=== PATIENT | male | born 2000 | race Caucasian/White ===

== ENCOUNTER 2019-03-22 15:49 | Emergency (ER) | payer OTHER ==
[2019-03-22 15:55] VITALS: RESP 18; TEMP 97.7
[2019-03-22] MEDS ORDERED: SODIUM CHLORIDE 0.9% 1,000 ML IV STA (16:25)
[2019-03-22 16:53] LABS: Basophils % (A) 0 %; Eosinophils % (A) 0 %; HCT 42.5 % (39.0-53.0); HGB 13.5 gm/dL (13.0-17.5); Lymphocytes # (A) 1.3 k/uL (1.0-4.8); Lymphocytes % (A) 10 %; MCH 21.5 pg (25.0-35.0); MCHC 31.8 g/dL (31.0-37.0); MCV 67.6 fL (80.0-100.0); Microcytosis Marked; Monocytes # (A) 0.6 k/uL (0-1.0); Monocytes % (A) 4 %; Neutrophils # (A) 10.8 k/uL (1.3-7.7); Neutrophils % (A) 84 %; Platelet Count 273 k/uL (150-450); RBC 6.28 m/uL (4.30-5.90); RDW 14.2 % (11.5-15.5); WBC 12.9 k/uL (4.0-11.0)
--- NOTE | 2019-03-22 16:59 | CT ---
EXAMINATION TYPE: CT brain jessica wo con DATE OF EXAM: 03/22/2019 COMPARISON: None HISTORY: Syncope, seizure and fall. Neck pain. Headache. CT DLP: 1315.4 mGycm Automated exposure control for dose reduction was used. Ventricles have normal size. There is no mass effect nor midline shift. There is no sign of intracran ial hemorrhage. Calvarium is intact. There is some straightening of the cervical spine. Disc spaces are normal. Posterior elements are int act. Skull base is intact. There is no evidence of a fracture. IMPRESSION: Negative CT scan cervical spine. Negative CT scan of the brain.
--- NOTE | 2019-03-22 17:00 | XR ---
EXAMINATION TYPE: XR chest 2V DATE OF EXAM: 03/22/2019 COMPARISON: NONE HISTORY: Syncope TECHNIQUE: 2 views FINDINGS: Heart and mediastinum are normal. Lungs are clear. Diaphragm is normal. Bony thorax appears normal. IMPRESSION: Normal chest.
[2019-03-22 17:10] LABS: ALT 14 U/L (4-49); AST 27 U/L (17-59); African American GFR (CKD) >90 (>60 ml/min/1.73 sqM); Albumin 5.2 g/dL (3.5-5.0); Alkaline Phosphatase 90 U/L (38-126); Anion Gap 11 mmol/L; Blood Urea Nitrogen 14 mg/dL (9-20); Carbon Dioxide 25 mmol/L (22-30); Chloride 103 mmol/L (98-107); Creatine Kinase 68 U/L (55-170); Glucose 93 mg/dL (74-99); Non-African American GFR(CKD) >90 (>60 ml/min/1.73 sqM); Sodium 139 mmol/L (137-145); Total Bilirubin 2.4 mg/dL (0.2-1.3)
[2019-03-22 17:14] LABS: D-Dimer <0.17 mg/L FEU (<0.60); Prothrombin Time 10.5 sec (9.0-12.0)
--- NOTE | 2019-03-22 17:17 | ED ---
General Adult HPI - General Chief complaint: Syncope Stated complaint: syncope/poss seizure Time Seen by Provider: 03/22/19 15:50 Source: EMS Mode of arrival: EMS Limitations: no limitations - History of Present Illness Initial comments: The patient is a 18-year-old male past medical history of thalassemia who presents to the emergency department with reported syncopal versus seizure like activity at home. This afternoon the patient was playing around with his dog when the dog bumped into his jaw and caused him suffer from a laceration. The patient did stand up and was rinsing out his mouth over the sink when he states that he felt lightheaded with chest pain and had shortness of breath. Mother was near the patient however she states she turned around and the patient was on the ground. She is unsure if he hit his head. The patient did have some shaking to his whole body. It only lasted about 15 seconds. She is unsure if it is considered seizure-like activity however when the patient became arousable he was confused for approximately an hour. Patient states he does not remember the events after standing over the sink. He doesn't remember please arriving to the house which was almost an hour later. Mother states that during this confusion. He was reporting chest pain with difficulty taking a full breath in. They deny that there is a significant amount of bleeding from the cut. Patient is denying a headache or visual changes. No neck pain or stiffness. No recent infections. Continues to report shortness of breath. Denies any abdominal pain or changes in his bowel or bladder habits. There is no tongue biting and the patient did not have any urinary or stool incontinence. History of one similar episode in the past. The patient popped blister on his arm and ended up passing out. Mother states that the details surrounding the incident are fairly familiar. The patient was not immediately evaluated. They deny that the patient has a history of cardiac disease. No family history of sudden cardiac . 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 The patient does not take any prescribed medications. No abuse of any illicit substances. There are no alleviating, precipitating or modifying factors - Related Data Home Medications Medication Instructions Recorded Confirmed Simethicone [Gas-X] 125 mg PO Q4H PRN 06/22/18 06/22/18 Previous Rx's Medication Instructions Recorded EPINEPHrine (Auto Inject) [Epipen] 0.3 mg IM ONCE PRN #1 syringe 02/18/15 Allergies Allergy/AdvReac Type Severity Reaction Status Date / Time No Known Allergies Allergy Verified 06/22/18 14:51 Review of Systems ROS Statement: Those systems with pertinent positive or pertinent negative responses have been documented in the HPI. ROS Other: All systems not noted in ROS Statement are negative. Past Medical History Past Medical History: No Reported History Additional Past Medical History / Comment(s): thalassemia History of Any Multi-Drug Resistant Organisms: None Reported Past Surgical History: Adenoidectomy, Appendectomy, Tonsillectomy Past Psychological History: No Psychological Hx Reported Smoking Status: Never smoker Past Alcohol Use History: Occasional Past Drug Use History: None Reported General Exam Limitations: no limitations General appearance: alert, in no apparent distress Head exam: Present: atraumatic, normocephalic, normal inspection Eye exam: Present: normal appearance, PERRL, EOMI. Absent: scleral icterus, conjunctival injection, periorbital swelling ENT exam: Present: normal exam, mucous membranes moist Neck exam: Present: normal inspection. Absent: tenderness, meningismus, lymphadenopathy Respiratory exam: Present: normal lung sounds bilaterally. Absent: respiratory distress, wheezes, rales, rhonchi, stridor Cardiovascular Exam: Present: regular rate, normal rhythm, normal heart sounds. Absent: systolic murmur, diastolic murmur, rubs, gallop, clicks GI/Abdominal exam: Present: soft, normal bowel sounds. Absent: distended, tenderness, guarding, rebound, rigid Extremities exam: Present: normal inspection, full ROM, normal capillary refill. Absent: tenderness, pedal edema, joint swelling, calf tenderness Back exam: Present: normal inspection Neurological exam: Present: alert, oriented X3, CN II-XII intact Psychiatric exam: Present: normal affect, normal mood Skin exam: Present: warm, dry, intact, normal color. Absent: rash Course Vital Signs 03/22/19 03/22/19 03/22/19 15:53 17:03 17:57 Temperature 97.7 F Pulse Rate 112 H 89 Respiratory 18 18 Rate Blood Pressure 123/70 110/60 Blood Pressure 106/63 [Right Arm Sitting] Blood Pressure 103/64 [Right Arm Standing] Blood Pressure 101/67 [Right Arm Supine] O2 Sat by Pulse 100 98 Oximetry EKG Findings - EKG Comments: EKG Findings:: EKG demonstrates normal sinus rhythm with ventricular rate of 94. LA interval 122. QRS 90. QTC of 442. No acute ST segment elevations or depressions concerning for ischemic change. No signs of Njfeq-Exzqywkgm-Ssrda or Brugada syndrome. No signs of arrythmogenic right ventricular dysplasia Medical Decision Making - Medical Decision Making Upon arrival the patient was placed into room 5. A thorough history and physical exam is performed. Peripheral IV was established by EMS. Patient was placed on continuous pulse ox and cardiac monitoring. Sats were conducted which were negative. He was given a liter bolus of normal saline. Laboratory studies were conducted. The patient was fitted for a chest x-ray. Because of this possible new-onset seizure like activity with possible head injury I did recommend a CT of the patient's brain. Laboratory studies demonstrated a white blood count of 12.9. D-dimer is negative. CMP is remarkable for a total bili of 2.4. Urinalysis as well as urine drug screen is negative. CT brain and C- spine demonstrates no acute intracranial findings. Chest x-ray demonstrates thoracic findings. The patient was given 4 mg of Zofran as he is reporting nausea. Even reevaluated and feels improved. I did discuss diagnosis, differential and treatment options. I did offer hospital observation for the patient's syncopal episode versus new onset seizure-like activity however the patient feels improved at this time he wants to go home. Recommend patient follow up with his primary care physician. He may need additional testing to include an MRI, EEG, Holter monitoring and echo. Return to the emergency room for any new or worsening symptoms. Patient was in agreement treatment plan and was discharged home ambulatory in stable condition - Lab Data Result diagrams: 03/22/19 15:56 03/22/19 15:56 Lab Results 03/22/19 03/22/19 03/22/19 Range/Units 15:56 15:56 15:56 WBC 12.9 H (4.0-11.0) k/uL RBC 6.28 H (4.30-5.90) m/uL Hgb 13.5 (13.0-17.5) gm/dL Hct 42.5 (39.0-53.0) % MCV 67.6 L (80.0-100.0) fL MCH 21.5 L (25.0-35.0) pg MCHC 31.8 (31.0-37.0) g/dL RDW 14.2 (11.5-15.5) % Plt Count 273 (150-450) k/uL Neutrophils % 84 % Lymphocytes % 10 % Monocytes % 4 % Eosinophils % 0 % Basophils % 0 % Neutrophils # 10.8 H (1.3-7.7) k/uL Lymphocytes # 1.3 (1.0-4.8) k/uL Monocytes # 0.6 (0-1.0) k/uL Eosinophils # 0.0 (0-0.7) k/uL Basophils # 0.0 (0-0.2) k/uL Microcytosis Marked PT 10.5 (9.0-12.0) sec INR 1.0 (<1.2) APTT 25.0 (22.0-30.0) sec D-Dimer <0.17 (<0.60) mg/L FEU Sodium 139 (137-145) mmol/L Potassium 4.0 (3.5-5.1) mmol/L Chloride 103 (98-107) mmol/L Carbon Dioxide 25 (22-30) mmol/L Anion Gap 11 mmol/L BUN 14 (9-20) mg/dL Creatinine 0.91 (0.66-1.25) mg/dL Est GFR (CKD-EPI)AfAm >90 (>60 ml/min/1.73 sqM) Est GFR (CKD-EPI)NonAf >90 (>60 ml/min/1.73 sqM) Glucose 93 (74-99) mg/dL Plasma Lactic Acid Kiet (0.7-2.0) mmol/L Calcium 10.0 (8.4-10.2) mg/dL Total Bilirubin 2.4 H (0.2-1.3) mg/dL AST 27 (17-59) U/L ALT 14 (4-49) U/L Alkaline Phosphatase 90 (38-126) U/L Creatine Kinase 68 (55-170) U/L Troponin I (0.000-0.034) ng/mL Total Protein 8.0 (6.3-8.2) g/dL Albumin 5.2 H (3.5-5.0) g/dL Urine Color Urine Appearance (Clear) Urine pH (5.0-8.0) Ur Specific [place] (1.001-1.035) Urine Protein (Negative) Urine Glucose (UA) (Negative) Urine Ketones (Negative) Urine Blood (Negative) Urine Nitrite (Negative) Urine Bilirubin (Negative) Urine Urobilinogen (<2.0) mg/dL Ur Leukocyte Esterase (Negative) Urine Opiates Screen (NotDetected) Ur Oxycodone Screen (NotDetected) Urine Methadone Screen (NotDetected) Ur Propoxyphene Screen (NotDetected) Ur Barbiturates Screen (NotDetected) U Tricyclic Antidepress (NotDetected) Ur Phencyclidine Scrn (NotDetected) Ur Amphetamines Screen (NotDetected) U Methamphetamines Scrn (NotDetected) U Benzodiazepines Scrn (NotDetected) Urine Cocaine Screen (NotDetected) U Marijuana (THC) Screen (NotDetected) 03/22/19 03/22/19 03/22/19 Range/Units 15:56 15:56 15:56 WBC (4.0-11.0) k/uL RBC (4.30-5.90) m/uL Hgb (13.0-17.5) gm/dL Hct (39.0-53.0) % MCV (80.0-100.0) fL MCH (25.0-35.0) pg MCHC (31.0-37.0) g/dL RDW (11.5-15.5) % Plt Count (150-450) k/uL Neutrophils % % Lymphocytes % % Monocytes % % Eosinophils % % Basophils % % Neutrophils # (1.3-7.7) k/uL Lymphocytes # (1.0-4.8) k/uL Monocytes # (0-1.0) k/uL Eosinophils # (0-0.7) k/uL Basophils # (0-0.2) k/uL Microcytosis PT (9.0-12.0) sec INR (<1.2) APTT (22.0-30.0) sec D-Dimer (<0.60) mg/L FEU Sodium (137-145) mmol/L Potassium (3.5-5.1) mmol/L Chloride (98-107) mmol/L Carbon Dioxide (22-30) mmol/L Anion Gap mmol/L BUN (9-20) mg/dL Creatinine (0.66-1.25) mg/dL Est GFR (CKD-EPI)AfAm (>60 ml/min/1.73 sqM) Est GFR (CKD-EPI)NonAf (>60 ml/min/1.73 sqM) Glucose (74-99) mg/dL Plasma Lactic Acid Kiet 1.3 (0.7-2.0) mmol/L Calcium (8.4-10.2) mg/dL Total Bilirubin (0.2-1.3) mg/dL AST (17-59) U/L ALT (4-49) U/L Alkaline Phosphatase (38-126) U/L Creatine Kinase (55-170) U/L Troponin I <0.012 (0.000-0.034) ng/mL Total Protein (6.3-8.2) g/dL Albumin (3.5-5.0) g/dL Urine Color Light Yellow Urine Appearance Clear (Clear) Urine pH 8.0 (5.0-8.0) Ur Specific [place] 1.003 (1.001-1.035) Urine Protein Negative (Negative) Urine Glucose (UA) Negative (Negative) Urine Ketones Negative (Negative) Urine Blood Negative (Negative) Urine Nitrite Negative (Negative) Urine Bilirubin Negative (Negative) Urine Urobilinogen <2.0 (<2.0) mg/dL Ur Leukocyte Esterase Negative (Negative) Urine Opiates Screen Not Detected (NotDetected) Ur Oxycodone Screen Not Detected (NotDetected) Urine Methadone Screen Not Detected (NotDetected) Ur Propoxyphene Screen Not Detected (NotDetected) Ur Barbiturates Screen Not Detected (NotDetected) U Tricyclic Antidepress Not Detected (NotDetected) Ur Phencyclidine Scrn Not Detected (NotDetected) Ur Amphetamines Screen Not Detected (NotDetected) U Methamphetamines Scrn Not Detected (NotDetected) U Benzodiazepines Scrn Not Detected (NotDetected) Urine Cocaine Screen Not Detected (NotDetected) U Marijuana (THC) Screen Not Detected (NotDetected) Disposition Clinical Impression: Syncope and collapse Disposition: HOME SELF-CARE Condition: Stable Instructions (If sedation given, give patient instructions): Syncope (ED) Additional Instructions: Please follow up with the primary care doctor in 2-4 days. I do recommend that you have Holter monitoring and echo for possible passing out episode. Also recommended you have an MRI and EEG for possible seizure like activity. Return to the emergency room for any new worsening symptoms Is patient prescribed a controlled substance at d/c from ED?: No Referrals: Spencer Renteria MD [Primary Care Provider] - 1-2 days Time of Disposition: 17:48
[2019-03-22 17:29] LABS: Appearance,Urine Clear (Clear); Bilirubin,Urine Negative (Negative); Blood,Urine Negative (Negative); Color,Urine Light Yellow; Glucose,Urine (UA) Negative (Negative); Ketones,Urine Negative (Negative); Leukocyte Esterase,Urine Negative (Negative); Nitrite,Urine Negative (Negative); Protein,Urine Negative (Negative); Specific Gravity,Urine 1.003 (1.001-1.035); Urobilinogen,Urine <2.0 mg/dL (<2.0)
[2019-03-22 17:42] LABS: Amphetamine Screen,Urine Not Detected (NotDetected); Barbiturate Screen,Urine Not Detected (NotDetected); Benzodiazepines Screen,Urine Not Detected (NotDetected); Cocaine Screen,Urine Not Detected (NotDetected); Methadone Screen, Urine Not Detected (NotDetected); Opiate Screen,Urine Not Detected (NotDetected); Oxycodone Screen, Urine Not Detected (NotDetected); Phencyclidine Screen,Urine Not Detected (NotDetected); Tricyclic Antidepressant,Urine Not Detected (NotDetected); Urn Cannabinoid Scrn Not Detected (NotDetected)
[2019-03-22] MEDS ORDERED: ONDANSETRON 4 MG ODT STARTER PACK 2 TAB BTL PO STA (17:47)
[2019-03-22] MEDS ORDERED: ONDANSETRON 4 MG/2 ML VIAL IVP STA (17:47)
[2019-03-22 18:01] VITALS: BP 110/60; PULSE 89
== END 2019-03-22 17:57 | disposition home or self-care (01) ==
LOC: EC 15:49
DX: R55 Syncope and collapse (principal); R07.9 Chest pain, unspecified; R06.02 Shortness of breath; R11.0 Nausea
CPT/HCPCS: 99285; 96374; 96361; 36415; 93005; 85379; 80053; 82550; 83605; 84484; 85025; 85610; 85730; 81003; 80306; 71046; 72125; 70450; J2405; S0119

== ENCOUNTER 2023-02-24 20:38 | Emergency (ER) | payer OTHER ==
[2023-02-24 21:14] VITALS: RESP 18; TEMP 98.2
--- NOTE | 2023-02-24 21:54 | ED ---
General Adult HPI - General Chief complaint: ENT Stated complaint: Syncope Time Seen by Provider: 02/24/23 21:20 Source: patient, EMS Mode of arrival: EMS Limitations: no limitations - History of Present Illness Initial comments: Dictation was produced using [employer] dictation software. please excuse any grammatical, word or spelling errors. 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 He states that he gets nosebleeds often. Today he had a more severe nosebleed that he is usually used 2. Around that time he had an episode of syncope. Mother witnessed the event did appear to be shaking a little bit. There was some concern that he was mildly postictal. He was confused for several minutes after the alleged shaking incident. Patient has a history of seizures. He has been suffering from cold and cough symptoms for the last several days. Patient otherwise has not been feeling very well. The ROS documented in this emergency department record has been reviewed and confirmed by me. Those systems with pertinent positive or negative responses have been documented in the HPI. All other systems are other negative and/or noncontributory. - Related Data Home Medications Medication Instructions Recorded Confirmed Simethicone [Gas-X] 125 mg PO Q4H PRN 06/22/18 06/22/18 Previous Rx's Medication Instructions Recorded EPINEPHrine (Auto Inject) [Epipen] 0.3 mg IM ONCE PRN #1 syringe 02/18/15 Allergies Allergy/AdvReac Type Severity Reaction Status Date / Time No Known Allergies Allergy Verified 02/24/23 20:50 Review of Systems ROS Statement: Those systems with pertinent positive or pertinent negative responses have been documented in the HPI. ROS Other: All systems not noted in ROS Statement are negative. Past Medical History Past Medical History: No Reported History Additional Past Medical History / Comment(s): thalassemia History of Any Multi-Drug Resistant Organisms: None Reported Past Surgical History: Adenoidectomy, Appendectomy, Tonsillectomy Past Psychological History: No Psychological Hx Reported Past Alcohol Use History: Occasional Past Drug Use History: None Reported General Exam - General Exam Comments Initial Comments: PHYSICAL EXAM: General Impression: Alert and oriented x3, not in acute distress HEENT: Normocephalic atraumatic, extra-ocular movements intact, pupils equal and reactive to light bilaterally, mucous membranes moist. Cardiovascular: Heart regular rate and rhythm Chest: Able to complete full sentences, no retractions, no tachypnea Abdomen: abdomen soft, non-tender, non-distended, no organomegaly Musculoskeletal: Pulses present and equal in all extremities, no peripheral edema Motor: no focal deficits noted Neurological: CN II-XII grossly intact, no focal motor or sensory deficits noted Skin: Intact with no visualized rashes Psych: Normal affect and mood Limitations: no limitations Course Vital Signs 02/24/23 02/24/23 20:51 23:50 Temperature 98.2 F Pulse Rate 68 60 Respiratory 18 18 Rate Blood Pressure 104/68 99/54 O2 Sat by Pulse 100 99 Oximetry EKG Findings - EKG Comments: EKG Findings:: My EKG interpretation: Ventricular rate 70, sinus rhythm,. 154, QRS 90, QTC 34. No CA prolongation, no QTC prolongation, no ST or T-wave changes noted. Overall, this EKG is unremarkable Medical Decision Making - Medical Decision Making Was pt. sent in by a medical professional or institution (, PA, ELECTRICAL PLUMBING SUPERVISOR, urgent care, hospital, or retirement...) When possible be specific @ -No Did you speak to anyone other than the patient for history (EMS, parent, family, police, friend...)? What history was obtained from this source @ -Parents provide history as described above Did you review nursing and triage notes (agree or disagree)? Why? @ -I reviewed and agree with nursing and triage notes Were old charts reviewed (outside hosp., previous admission, EMS record, old EKG, old radiological studies, urgent care reports/EKG's, retirement records)? Report findings @ -No old charts were reviewed Differential Diagnosis (chest pain, altered mental status, abdominal pain women, abdominal pain men, vaginal bleeding, musculoskeletal, weakness, fever, dyspn ea, syncope, headache, dizziness, GI bleed, back pain, seizure, CVA, palpatations, mental health)? @ -FDifferential Syncope: Valvular disease, hypertrophic cardiomyopathy, pulmonary embolism, tamponade, tachycardia, bradycardia, NE, hypovolemia, hemorrhage, dissection, anemia, i ntracranial hemorrhage, seizure, hypoglycemia, carbon monoxide poisoning, this is not meant to be an all-inclusive list. EKG interpreted by me (3pts min.). @ -See above X-rays interpreted by me (1pt min.). @ -X-rays nonacute. CT interpreted by me (1pt min.). @ -Brain is nonacute U/S interpreted by me (1pt. min.). @ -None done What testing was considered but not performed or refused? (CT, X-rays, U/S, labs)? Why? @ -None What meds were considered but not given or refused? Why? @ -None Did you discuss the management of the patient with other professionals (professionals i.e. , PA, ELECTRICAL PLUMBING SUPERVISOR, lab, RT, psych nurse, social insurance analyst, signs and displays sales representative, teacher, community liaison officer, case picker)? Give summary @ -No Was smoking cessation discussed for >3mins.? @ -No Was critical care preformed (if so, how long)? @ -No Were there social determinants of health that impacted care today? How? (Homelessness, low income, unemployed, alcoholism, drug addiction, transportation, low edu. Level, literacy, decrease access to med. care, nursing home, rehab)? @ -No Was there de-escalation of care discussed even if they declined (Discuss DNR or withdrawal of care, Hospice)? DNR status @ -No What co-morbidities impacted this encounter? (DM, HTN, Smoking, COPD, CAD, Cancer, CVA, ARF, Chemo, Hep., AIDS, mental health diagnosis, sleep apnea, morbid obesity)? @ -None Was patient admitted / discharged? Hospital course, mention meds given and route, prescriptions, significant lab abnormalities, going to OR and other pertinent info. @ --22 year-old male presents to the emergency department after syncope versus seizure episode. Unclear patient had a postictal state and also has complaint of epistaxis. EKG is unremarkable. Vital signs stable. Patient will. Bedside. No active epistaxis at this time. Labs are negative.: CBC is a cceptable. Metabolic panel is unremarkable. Current virus positive. Patient observed in emergency department stable medical condition. He value at bedside at 12:20 AM will be discharged advised follow-up with primary care doctor. Undiagnosed new problem with uncertain prognosis? @ -No Drug Therapy requiring intensive monitoring for toxicity (Heparin, Nitro, Insulin, Cardizem)? @ -No Were any procedures done? @ -No Diagnosis/symptom? Acute, or Chronic, or Acute on Chronic? Uncomplicated (without systemic symptoms) or Complicated (systemic symptoms)? @ -Syncope secondary to COVID-19 virus, epistaxis Side effects of treatment? @ -No Exacerbation, Progression, or Severe Exacerbation? @ -No Poses a threat to life or bodily function? How? (Chest pain, USA, NE, pneumonia, PE, COPD, DKA, ARF, appy, cholecystitis, CVA, Diverticulitis, Homicidal, Suicidal, threat to staff... and all critical care pts) @ -No - Lab Data Result diagrams: 02/24/23 22:29 02/24/23 21:46 Lab Results 02/24/23 02/24/23 02/24/23 Range/Units 21:46 21:46 21:46 WBC (3.8-10.6) k/uL RBC (4.30-5.90) m/uL Hgb (13.0-17.5) gm/dL Hct (39.0-53.0) % MCV (80.0-100.0) fL MCH (25.0-35.0) pg MCHC (31.0-37.0) g/dL RDW (11.5-15.5) % Plt Count (150-450) k/uL MPV Neutrophils % % Lymphocytes % % Monocytes % % Eosinophils % % Basophils % % Neutrophils # (1.3-7.7) k/uL Lymphocytes # (1.0-4.8) k/uL Monocytes # (0-1.0) k/uL Eosinophils # (0-0.7) k/uL Basophils # (0-0.2) k/uL Microcytosis PT 10.6 (10.0-12.5) sec INR 1.0 (<1.2) APTT 18.6 L (22.0-30.0) sec Sodium 138 (137-145) mmol/L Potassium 4.0 (3.5-5.1) mmol/L Chloride 103 (98-107) mmol/L Carbon Dioxide 25 (22-30) mmol/L Anion Gap 10 mmol/L BUN 18 (9-20) mg/dL Creatinine 0.75 (0.66-1.25) mg/dL Est GFR (CKD-EPI)AfAm >90 (>60 ml/min/1.73 sqM) Est GFR (CKD-EPI)NonAf >90 (>60 ml/min/1.73 sqM) Glucose 111 H (74-99) mg/dL Calcium 8.6 (8.4-10.2) mg/dL Magnesium 2.0 (1.6-2.3) mg/dL Influenza Type A (PCR) (Not Detectd) Influenza Type B (PCR) (Not Detectd) RSV (PCR) (Not Detectd) SARS-CoV-2 (PCR) (Not Detectd) Blood Type O Positive Blood Type Confirm Blood Type Recheck No Previous Record Bld Type Recheck Status CABO Indicated Antibody Screen NEGATIVE Spec Expiration Date 02/27/2023 - 234502/24/23 02/24/23 02/24/23 Range/Units 22:29 22:29 22:34 WBC 6.3 (3.8-10.6) k/uL RBC 5.07 (4.30-5.90) m/uL Hgb 11.4 L (13.0-17.5) gm/dL Hct 34.4 L (39.0-53.0) % MCV 67.9 L (80.0-100.0) fL MCH 22.5 L (25.0-35.0) pg MCHC 33.1 (31.0-37.0) g/dL RDW 15.4 (11.5-15.5) % Plt Count 186 (150-450) k/uL MPV 7.1 Neutrophils % 70 % Lymphocytes % 22 % Monocytes % 6 % Eosinophils % 0 % Basophils % 1 % Neutrophils # 4.4 (1.3-7.7) k/uL Lymphocytes # 1.4 (1.0-4.8) k/uL Monocytes # 0.4 (0-1.0) k/uL Eosinophils # 0.0 (0-0.7) k/uL Basophils # 0.0 (0-0.2) k/uL Microcytosis Marked PT (10.0-12.5) sec INR (<1.2) APTT (22.0-30.0) sec Sodium (137-145) mmol/L Potassium (3.5-5.1) mmol/L Chloride (98-107) mmol/L Carbon Dioxide (22-30) mmol/L Anion Gap mmol/L BUN (9-20) mg/dL Creatinine (0.66-1.25) mg/dL Est GFR (CKD-EPI)AfAm (>60 ml/min/1.73 sqM) Est GFR (CKD-EPI)NonAf (>60 ml/min/1.73 sqM) Glucose (74-99) mg/dL Calcium (8.4-10.2) mg/dL Magnesium (1.6-2.3) mg/dL Influenza Type A (PCR) Not Detected (Not Detectd) Influenza Type B (PCR) Not Detected (Not Detectd) RSV (PCR) Not Detected (Not Detectd) SARS-CoV-2 (PCR) Detected A (Not Detectd) Blood Type Blood Type Confirm O Positive Blood Type Recheck Bld Type Recheck Status Antibody Screen Spec Expiration Date Disposition Clinical Impression: Syncope, Coronavirus infection Disposition: HOME SELF-CARE Condition: Fair Instructions (If sedation given, give patient instructions): Nosebleed (ED), Coronavirus Disease 2019 (COVID-19) Is patient prescribed a controlled substance at d/c from ED?: No Referrals: Spencer Renteria MD [Primary Care Provider] - 1-2 days Time of Disposition: 00:22
[2023-02-24 22:18] LABS: Prothrombin Time 10.6 sec (10.0-12.5)
[2023-02-24 22:33] LABS: African American GFR (CKD) >90 (>60 ml/min/1.73 sqM); Anion Gap 10 mmol/L; Blood Urea Nitrogen 18 mg/dL (9-20); Calcium 8.6 mg/dL (8.4-10.2); Carbon Dioxide 25 mmol/L (22-30); Chloride 103 mmol/L (98-107); Glucose 111 mg/dL (74-99); Non-African American GFR(CKD) >90 (>60 ml/min/1.73 sqM); Sodium 138 mmol/L (137-145)
[2023-02-24 22:38] LABS: Partial Thromboplastin Time 18.6 sec (22.0-30.0)
[2023-02-24 22:46] LABS: Basophils % (A) 1 %; Eosinophils % (A) 0 %; HCT 34.4 % (39.0-53.0); HGB 11.4 gm/dL (13.0-17.5); Lymphocytes # (A) 1.4 k/uL (1.0-4.8); Lymphocytes % (A) 22 %; MCH 22.5 pg (25.0-35.0); MCHC 33.1 g/dL (31.0-37.0); MCV 67.9 fL (80.0-100.0); Mean Platelet Volume 7.1; Microcytosis Marked; Monocytes # (A) 0.4 k/uL (0-1.0); Monocytes % (A) 6 %; Neutrophils # (A) 4.4 k/uL (1.3-7.7); Neutrophils % (A) 70 %; Platelet Count 186 k/uL (150-450); RBC 5.07 m/uL (4.30-5.90); RDW 15.4 % (11.5-15.5); WBC 6.3 k/uL (3.8-10.6)
--- NOTE | 2023-02-24 23:19 | CT ---
EXAM: CT Head Without Intravenous Contrast CLINICAL HISTORY: ITS.REASON CT Reason: cough, congestion TECHNIQUE: Axial computed tomography images of the head/brain without intravenous contrast. CTDI is 49.2 mGy and DLP is 1138.4 mGy-cm. This CT exam was performed using one or more of the following dose reduction techniques: automated exposure control, adjustment of the mA and/or kV according to patient size, and/or use of iterative reconstruction technique. COMPARISON: No relevant prior studies available. FINDINGS: Brain: Unremarkable. No hemorrhage. No significant white matter disease. No edema. Ventricles: Unremarkable. No ventriculomegaly. Bones/joints: Unremarkable. No acute fracture. Soft tissues: Unremarkable. Sinuses: Unremarkable as visualized. No acute sinusitis. Mastoid air cells: Unremarkable as visualized. No mastoid effusion. IMPRESSION: Normal head/brain CT.
--- NOTE | 2023-02-24 23:40 | XR ---
EXAMINATION TYPE: XR chest 2V DATE OF EXAM: 02/24/2023 9:58 PM CLINICAL INDICATION:Male, 22 years old with history of cough, congestion; [facility] COMPARISON: None TECHNIQUE: XR chest 2V. Frontal PA and lateral views of the chest. FINDINGS: Lines/Tubes: None. Heart/mediastinum: Cardiomediastinal silhouette is well defined. Heart size is normal. Mediastinum appears normal. Pulmonary vascularity: Not increased, Lungs/Pleura: There is no evidence of pleural effusion, focal consolidation, or pneumothorax. Musculoskeletal: No acute osseous abnormality demonstrated in the limits of the exam. Other findings: None. IMPRESSION: No acute cardiopulmonary abnormality.
[2023-02-24 23:52] VITALS: BP 99/54; PULSE 60
== END 2023-02-25 00:40 | disposition home or self-care (01) ==
LOC: EC 20:38
DX: U07.1 COVID-19 (principal)
CPT/HCPCS: 36415; 70450; 71046; 80048; 83735; 85025; 85610; 85730; 86850; 86900; 86901; 87636; 93005; 99285

== ENCOUNTER 2024-06-24 17:05 | Emergency (ER) | payer OTHER ==
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
[2024-06-24 18:39] VITALS: BP 121/76; PULSE 91; RESP 18; TEMP 98.8
== END 2024-06-24 18:39 | disposition home or self-care (01) ==
LOC: EC 17:05
DX: R07.81 Pleurodynia (principal); Y99.0 Civilian activity done for income or pay
CPT/HCPCS: 99283

== ENCOUNTER 2024-10-05 13:05 | Emergency (ER) | payer BC, OTHER ==
[2024-10-05 13:11] VITALS: RESP 18; TEMP 97.9
--- NOTE | 2024-10-05 13:52 | ED ---
General Adult HPI - General Chief complaint: Chest Pain Stated complaint: chest pain Time Seen by Provider: 10/05/24 13:10 Source: patient, RN notes reviewed, old records reviewed Mode of arrival: ambulatory Limitations: no limitations - History of Present Illness Initial comments: This is a 24-year-old male who presents to the emergency department stating that on Sunday he started having some chest pressure and felt like it was hard to take a deep breath. Patient states that it started off as a burning sensation similar to heartburn. Patient states it went away but we woke up Sunday it came back and has been ongoing ever since. Patient denies any diaphoretic episode. Patient denies any radiation of the pain. Patient Nuys any nausea or vomiting. Patient denies any abdominal pain. Patient states he had a couple episodes where he thought he might pass out but did not. Patient states he does have a history of passing out. Patient denies any recent fever chills or cough. Patient Nuys any swelling to the legs or calf tenderness. - Related Data Home Medications Medication Instructions Recorded Confirmed Simethicone [Gas-X] 125 mg PO Q4H PRN 06/22/18 06/22/18 Previous Rx's Medication Instructions Recorded EPINEPHrine (Auto Inject) [Epipen] 0.3 mg IM ONCE PRN #1 syringe 02/18/15 Allergies Allergy/AdvReac Type Severity Reaction Status Date / Time No Known Allergies Allergy Verified 10/05/24 13:11 Review of Systems ROS Statement: Those systems with pertinent positive or pertinent negative responses have been documented in the HPI. ROS Other: All systems not noted in ROS Statement are negative. Past Medical History Past Medical History: No Reported History Additional Past Medical History / Comment(s): thalassemia History of Any Multi-Drug Resistant Organisms: None Reported Past Surgical History: Adenoidectomy, Appendectomy, Tonsillectomy Past Psychological History: No Psychological Hx Reported Smoking Status: Never smoker Past Alcohol Use History: Occasional Past Drug Use History: None Reported General Exam - General Exam Comments Initial Comments: GENERAL: Patient is well-developed and well-nourished. Patient is nontoxic and well- hydrated and is in mild distress. ENT: Neck is soft and supple. No significant lymphadenopathy is noted. Oropharynx is clear. Moist mucous membranes. Neck has full range of motion without eliciting any pain. EYES: The sclera were anicteric and conjunctiva were pink and moist. Extraocular movements were intact and pupils were equal round and reactive to light. Eyelids were unremarkable. PULMONARY: Unlabored respirations. Good breath sounds bilaterally. No audible rales rhonchi or wheezing was noted. CARDIOVASCULAR: There is a regular rate and rhythm without any murmurs gallops or rubs. ABDOMEN: Soft and nontender with normal bowel sounds. No palpable organomegaly was noted. There is no palpable pulsatile mass. SKIN: Skin is clear with no lesions or rashes and otherwise unremarkable. NEUROLOGIC:Cerebellar exam grossly intact. MUSCULOSKELETAL: Normal extremities with adequate strength and full range of motion. No lower extremity swelling or edema. No calf tenderness. LYMPHATICS: No significant lymphadenopathy is noted PSYCHIATRIC: Normal psychiatric evaluation. Limitations: no limitations Course Vital Signs 10/05/24 10/05/24 13:08 13:15 Temperature 97.9 F Pulse Rate 88 Pulse Rate [ 68 [employer] Specialist ] Respiratory 18 Rate Blood Pressure 93/62 O2 Sat by Pulse 99 Oximetry Medical Decision Making - Medical Decision Making EKG is interpreted by myself and EKG shows a sinus rhythm at 79 bpm AR is 156 QRS is 85 QT interval 340 QTc is 375. Patient's EKG shows no ST segment elevation or depression. Was pt. sent in by a medical professional or institution (, PA, LABOR RELATIONS SPECIALIST, urgent care, hospital, or halfway...) When possible be specific @ -No Did you speak to anyone other than the patient for history (EMS, parent, family, police, friend...)? What history was obtained from this source @ -No Did you review nursing and triage notes (agree or disagree)? Why? @ -I reviewed and agree with nursing and triage notes Were old charts reviewed (outside hosp., previous admission, EMS record, old EKG, old radiological studies, urgent care reports/EKG's, halfway records)? Report findings @ -No old charts were reviewed Differential Diagnosis? @ -Differential Chest Pain: Stable Angina, Unstable Angina, STEMI, NSTEMI Aortic Dissection, Pneumothorax, Musculoskeletal, Esophageal Spasm GERD, Cholecystitis, Pancreatitis, Zoster, this is not meant to be an all-inclusive list. EKG interpreted by me (3pts min.). @ -As above X-rays interpreted by me (1pt min.). @ -Chest x-ray shows no acute dramality CT interpreted by me (1pt min.). @ -None done U/S interpreted by me (1pt. min.). @ -None done What testing was considered but not performed or refused? (CT, X-rays, U/S, labs)? Why? @ -None What meds were considered but not given or refused? Why? @ -None Did you discuss the management of the patient with other professionals (professionals i.e. DrKeven, PA, LABOR RELATIONS SPECIALIST, lab, RT, psych nurse, social media director, boot repairer, teacher, human resource officer, adult protective caseworker)? Give summary @ -No Was smoking cessation discussed for >3mins.? @ -No Was critical care preformed (if so, how long)? @ -No Were there social determinants of health that impacted care today? How? (Homelessness, low income, unemployed, alcoholism, drug addiction, transpo rtation, low edu. Level, literacy, decrease access to med. care, alf, rehab)? @ -No Was there de-escalation of care discussed even if they declined (Discuss DNR or withdrawal of care, Hospice)? DNR status @ -No What co-morbidities impacted this encounter? (DM, HTN, Smoking, COPD, CAD, Cancer, CVA, ARF, Chemo, Hep., AIDS, mental health diagnosis, sleep apnea, morbid obesity)? @ -None Was patient admitted / discharged? Hospital course, mention meds given and route, prescriptions, significant lab abnormalities, going to OR and other pertinent info. @ -Patient was stating that he felt better after he was in the emergency department for short period time. 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 Patient will follow-up with his primary medical care doctor. Undiagnosed new problem with uncertain prognosis? @ -No Drug Therapy requiring intensive monitoring for toxicity (Heparin, Nitro, Insulin, Cardizem)? @ -No Were any procedures done? @ -No Diagnosis/symptom? @ -Atypical chest pain Acute, or Chronic, or Acute on Chronic? @ -Acute Uncomplicated (without systemic symptoms) or Complicated (systemic symptoms)? @ -Complicated Side effects of treatment? @ -No Exacerbation, Progression, or Severe Exacerbation? @ -No Poses a threat to life or bodily function? How? (Chest pain, [place], [place], pneumonia, PE, COPD, DKA, ARF, appy, cholecystitis, CVA, Diverticulitis, Homicidal, Suicidal, threat to staff... and all critical care pts) @ -No - Lab Data Result diagrams: 10/05/24 13:56 10/05/24 13:56 Lab Results 10/05/24 10/05/24 10/05/24 Range/Units 13:56 13:56 13:56 WBC 5.13 (4.50-10.00) 10*3/uL RBC 5.64 H (4.40-5.60) 10*6/uL Hgb 12.4 L (13.0-17.0) g/dL Hct 37.7 L (39.6-50.0) % MCV 66.8 L (80.0-97.0) fL MCH 22.0 L (27.0-32.0) pg MCHC 32.9 (32.0-37.0) g/dL Plt Count 291 (140-440) 10*3/uL MPV 10.2 (9.5-12.2) fL Immature Gran % (Auto) 0.2 % Neutrophils % 60.8 % Lymphocytes % 30.8 % Monocytes % 7.2 % Eosinophils % 0.2 % Basophils % 0.8 % Immature Gran # 0.01 (0.00-0.04) 10*3/uL Neutrophils # 3.12 (1.80-7.70) 10*3/uL Lymphocytes # 1.58 (0.90-5.00) 10*3/uL Monocytes # 0.37 (0.20-1.00) 10*3/uL Eosinophils # 0.01 L (0.04-0.35) 10*3/uL Basophils # 0.04 (0.00-0.10) 10*3/uL D-Dimer <0.17 (<0.60) mg/L FEU Sodium 140 (137-145) mmol/L Potassium 4.2 (3.5-5.1) mmol/L Chloride 104 (98-107) mmol/L Carbon Dioxide 26 (22-30) mmol/L Anion Gap 10 mmol/L BUN 14 (9-20) mg/dL Creatinine 0.87 (0.66-1.25) mg/dL Est GFR (CKD-EPI)AfAm >90 (>60 ml/min/1.73 sqM) Est GFR (CKD-EPI)NonAf >90 (>60 ml/min/1.73 sqM) Glucose 85 (74-99) mg/dL Calcium 9.7 (8.4-10.2) mg/dL Magnesium 2.0 (1.6-2.3) mg/dL Total Bilirubin 3.5 H (0.2-1.3) mg/dL AST 26 (17-59) U/L ALT 14 (4-49) U/L Alkaline Phosphatase 61 (38-126) U/L Troponin I (0.000-0.034) ng/mL Total Protein 7.4 (6.3-8.2) g/dL Albumin 4.8 (3.5-5.0) g/dL / Range/Units 13:56 WBC (4.50-10.00) 10*3/uL RBC (4.40-5.60) 10*6/uL Hgb (13.0-17.0) g/dL Hct (39.6-50.0) % MCV (80.0-97.0) fL MCH (27.0-32.0) pg MCHC (32.0-37.0) g/dL Plt Count (140-440) 10*3/uL MPV (9.5-12.2) fL Immature Gran % (Auto) % Neutrophils % % Lymphocytes % % Monocytes % % Eosinophils % % Basophils % % Immature Gran # (0.00-0.04) 10*3/uL Neutrophils # (1.80-7.70) 10*3/uL Lymphocytes # (0.90-5.00) 10*3/uL Monocytes # (0.20-1.00) 10*3/uL Eosinophils # (0.04-0.35) 10*3/uL Basophils # (0.00-0.10) 10*3/uL D-Dimer (<0.60) mg/L FEU Sodium (137-145) mmol/L Potassium (3.5-5.1) mmol/L Chloride (98-107) mmol/L Carbon Dioxide (22-30) mmol/L Anion Gap mmol/L BUN (9-20) mg/dL Creatinine (0.66-1.25) mg/dL Est GFR (CKD-EPI)AfAm (>60 ml/min/1.73 sqM) Est GFR (CKD-EPI)NonAf (>60 ml/min/1.73 sqM) Glucose (74-99) mg/dL Calcium (8.4-10.2) mg/dL Magnesium (1.6-2.3) mg/dL Total Bilirubin (0.2-1.3) mg/dL AST (17-59) U/L ALT (4-49) U/L Alkaline Phosphatase (38-126) U/L Troponin I <0.012 (0.000-0.034) ng/mL Total Protein (6.3-8.2) g/dL Albumin (3.5-5.0) g/dL Disposition Clinical Impression: Atypical chest pain Disposition: HOME SELF-CARE Condition: Good Instructions (If sedation given, give patient instructions): Chest Pain (ED) Is patient prescribed a controlled substance at d/c from ED?: No Referrals: Spencer Renteria MD [Primary Care Provider] - 1-2 days Time of Disposition: 14:51
[2024-10-05 14:01] LABS: Basophils # (A) 0.04 10*3/uL (0.00-0.10); Basophils % (A) 0.8 %; Eosinophils # (A) 0.01 10*3/uL (0.04-0.35); Eosinophils % (A) 0.2 %; HCT 37.7 % (39.6-50.0); HGB 12.4 g/dL (13.0-17.0); Lymphocytes # (A) 1.58 10*3/uL (0.90-5.00); Lymphocytes % (A) 30.8 %; MCH 22.0 pg (27.0-32.0); MCHC 32.9 g/dL (32.0-37.0); MCV 66.8 fL (80.0-97.0); Monocytes # (A) 0.37 10*3/uL (0.20-1.00); Monocytes % (A) 7.2 %; Neutrophils # (A) 3.12 10*3/uL (1.80-7.70); Neutrophils % (A) 60.8 %; Platelet Count 291 10*3/uL (140-440); RBC 5.64 10*6/uL (4.40-5.60); RDW 15.2 % (11.5-14.5); WBC 5.13 10*3/uL (4.50-10.00)
[2024-10-05 14:19] LABS: ALT 14 U/L (4-49); AST 26 U/L (17-59); African American GFR (CKD) >90 (>60 ml/min/1.73 sqM); Albumin 4.8 g/dL (3.5-5.0); Alkaline Phosphatase 61 U/L (38-126); Anion Gap 10 mmol/L; Blood Urea Nitrogen 14 mg/dL (9-20); Calcium 9.7 mg/dL (8.4-10.2); Carbon Dioxide 26 mmol/L (22-30); Chloride 104 mmol/L (98-107); Glucose 85 mg/dL (74-99); Magnesium 2.0 mg/dL (1.6-2.3); Non-African American GFR(CKD) >90 (>60 ml/min/1.73 sqM); Potassium 4.2 mmol/L (3.5-5.1); Sodium 140 mmol/L (137-145); Total Protein 7.4 g/dL (6.3-8.2)
--- NOTE | 2024-10-05 14:33 | XR ---
EXAMINATION TYPE: XR chest 2V DATE OF EXAM: 10/05/2024 2:17 PM COMPARISON: Chest radiographs from 02/24/2023. CLINICAL INDICATION: Male, 24 years old with history of Chest Pain; [facility] TECHNIQUE: XR chest 2V Frontal and lateral views of the chest. FINDINGS: Lungs/Pleura: There is no evidence of pleural effusion, focal consolidation, or pneumothorax. Pulmonary vascularity: Unremarkable. Heart/mediastinum: Cardiomediastinal silhouette is unremarkable. Musculoskeletal: No acute osseous pathology. IMPRESSION: No acute cardiopulmonary disease/process. [facility], , 10/05/2024 2:31 PM
[2024-10-05 15:14] VITALS: BP 118/70; PULSE 87
== END 2024-10-05 15:14 | disposition home or self-care (01) ==
LOC: EC 13:05
DX: R07.89 Other chest pain (principal)
CPT/HCPCS: 36415; 71046; 80053; 83735; 84484; 85025; 85379; 93005; 99285